=== PATIENT | female | born 1990 | race Caucasian/White ===

== ENCOUNTER 2018-06-24 13:48 | Outpatient (RCR) | payer BC ==
[2018-09-09] MEDS ORDERED: METO-370 PO (07:32)
[2018-09-09] MEDS ORDERED: ZOLP10TA PO (07:32)
[2018-09-09] MEDS ORDERED: BUSP7.5T5 PO (07:32)
== END 2018-09-22 | disposition home or self-care (01) ==
LOC: CARD 13:48
PROVIDERS: ATTEND Internal Medicine Interventional Cardiology
DX: R42 Dizziness and giddiness (principal); R55 Syncope and collapse; R00.2 Palpitations
CPT/HCPCS: 93270

== ENCOUNTER → 2018-06-24 | Outpatient (CLI) | payer BC ==
[~2018-06-24] MED LIST: DEPO PROVERA IM
== END ==
LOC: CARD 13:46
PROVIDERS: ATTEND Internal Medicine Interventional Cardiology
DX: R42 Dizziness and giddiness (principal); R55 Syncope and collapse; R00.2 Palpitations
CPT/HCPCS: 93306

== ENCOUNTER 2018-09-09 07:14 | Day surgery (SDC) | payer BC ==
[2018-09-09] VITALS (13 sets, daily range): BP systolic 112–148; BP diastolic 84–103
[~2018-09-09] VITALS: Ht 157.5 cm; Wt 63.5 kg
[~2018-09-09 07:14] MED LIST changes: +HEParin (CATH LAB) 1,000 ML IV ONE; +LIDOCAINE 1% INJ 20 ML 20 ML VIAL ONE; +NS IV 1000 ML 1,000 ML ONE
[2018-09-09] MEDS ORDERED: ISOPROTERENOL 0.2 MG/D5W 50 ML IV ONE (07:15)
[2018-09-09] MEDS ORDERED: NS IV 1000 ML 1,000 ML IV SCH ×2 (07:15→10:57)
[2018-09-09] MEDS ORDERED: METO-370 PO (07:32)
[2018-09-09] MEDS ORDERED: BUSP7.5T5 PO (07:32)
[2018-09-09] MEDS ORDERED: ZOLP10TA PO (07:32)
[2018-09-09 07:37] LABS: HEMOGLOBIN 14.1 G/DL (11.5-16.0); MEAN PLATELET VOLUME 9.1 FL (7.4-10.4); RED CELL DISTRIBUTION WIDTH 12.4 % (10.0-14.5); WHITE BLOOD COUNT 8.7 10^3/uL (4.3-11.0)
[2018-09-09] MEDS ORDERED: PROPOFOL DRIP (ICU) 100 ML IV ONE ×2 (07:49→10:18)
[2018-09-09 07:53] LABS: INR 0.9 (0.8-1.4); PROTHROMBIN TIME PATIENT 12.9 SEC (12.2-14.7)
[2018-09-09 07:56] LABS: ALANINE AMINOTRANSFERASE 98 U/L (0-55); ALBUMIN 4.6 GM/DL (3.2-4.5); ALKALINE PHOSPHATASE 78 U/L (40-136); BUN/CREATININE RATIO 11; CALCIUM 9.7 MG/DL (8.5-10.1); CARBON DIOXIDE 22 MMOL/L (21-32); CHLORIDE 105 MMOL/L (98-107); CREATININE SERUM 1.02 MG/DL (0.60-1.30); GFR ESTIMATED > 60; GLUCOSE 94 MG/DL (70-105); POTASSIUM 3.5 MMOL/L (3.6-5.0); SODIUM 139 MMOL/L (135-145); TOTAL PROTEIN 7.7 GM/DL (6.4-8.2)
[2018-09-09] MEDS ORDERED: MIDAZOLAM 5 MG/5 ML (VERSED) VIAL ONE (07:58)
[2018-09-09] MEDS ORDERED: LIDOCAINE 1% INJ 20 ML 20 ML VIAL ONE (08:57)
--- NOTE | 2018-09-09 10:49 | Cardiac Procedure Note-CS/ASA ---
Pre-Procedure Note Pre-Op Procedure Note H&P Reviewed The H&P was reviewed, patient examined and no changes noted. Date H&P Reviewed: Sep 09, 2018 Time H&P Reviewed: 08:00 Conscious Sedation Pre-Proced Time 08:00 ASA Score 3 For ASA 3 and 4: Consider anesthesia and medical clearance. Also, for patients with a history of failed moderate sedation consider anesthesia. Airway Lungs Heart ASA score ASA 1: a normal healthy patient ASA 2: a patient with a mild systemic disease (mid diabetes, controlled hypertension, obesity ASA 3: a patient with a severe systemic disease that limits activity (angina, COPD, prior Myocardial infarction) ASA 4: a patient with an incapacitating disease that is a constant threat to life (CHF, renal failure) ASA 5: a moribund patient not expected to survive 24 hrs. (ruptured aneurysm) ASA 6: a declared brain- patient whose organs are being harvested. For emergent operations, add the letter E after the classification Mallampati Classification Grade 1 Sedation Plan Analgesia, Amnesia, Plan communicated to team members, Discussed options with patient/fam, Discussed risks with patient/fam The patient is an appropriate candidate to undergo the planned procedure, sedation, and anesthesia. The patient immediately re-assessed prior to indication. Paris HOWELL MD Sep 09, 2018 10:49
--- NOTE | 2018-09-09 10:57 | Electrophysiology Procedure ---
EP Procedure DATE OF SERVICE:09/09/18 CARDIAC VENEER REDRIER: Atul Kathleen MD, [facility], [facility]. INDICATION: narrow complex tachycardia, inappropriate sinus tachycardia. PREOPERATIVE DIAGNOSIS:narrow complex tachycardia, inappropriate sinus tachycardia. POSTOPERATIVE DIAGNOSES: no PSVT induced. Inappropriate sinus tachycardia. HISTORY: this is a 28-year-old lady with frequent palpitations. She was found to have narrow complex tachycardia which was likely inappropriate sinus tachycardia however it very fast heart rates occasionally PVCs were not discernible therefore PSVT was in the differential. The patient is planned for comprehensive EP study and ablation. PROCEDURE PERFORMED: 1. Comprehensive EP study with induction. 2. Fluoroscopy. 3. left atrial pacing and recording. 4. Drug infusion. COMPLICATION: None. ESTIMATED BLOOD LOSS: 10 mL. CONTRAST USED: None. FLUOROSCOPY TIME: 3.1 minutes. FLUOROSCOPY DOSE: 21 mgy. SPECIMENS: None. ANESTHESIA: Done by our anesthesia colleagues. ANTICOAGULATION: none. PROCEDURE IN DETAIL: After informed consent was taken, the patient was brought to the EP lab. Anesthesia was provided by our anesthesia colleagues. The patient was draped and prepped in the usual sterile fashion. The patient presented to the EP lab in sinus rhythm. Access was gained in the right femoral vein with a 6-Filipino and an 8-Filipino sheath. Left access in left femoral vein was gained with 5-Filipino and 6-Filipino sheath respectively. High right atrial catheter was an Chay catheter, right ventricular catheter was placed, his catheter and the CS catheter were also placed. A comprehensive EP study was done including left atrial pacing and recording. Dual AV mayra physiology was not demonstrated however single AV mayra echoes were demonstrated consistently. Isuprel was given and still were not able to induce tachycardia. Single AV mayra echo's were still demonstrated consistently. Dual AV mayra echoes were not demonstrated. EP study continued during washout phase and we were still not able to induce dual AV mayra echoes or tachycardia. Therefore no ablation was done. RV pacing did not demonstrate any left lateral pathway. Concentric atrial activation. Left atrial pacing and recording did not demonstrate any left-sided pathway. The patienttolerated the procedure well and did not have any complication. The patientleft the lab in sinus rhythm. MEASUREMENTS/EP STUDY: AA interval 525 ms, AH interval 61 ms, TX interval 168 ms, QRS duration 73 ms, QT interval 371 ms, R-R interval 670 ms, AV Wenckebach at pacing 260 ms, Retrograde Wenckebach when pacing at 460 ms, Retrograde Wenckebach when pacing at 210 ms, Atrial ERP was 450/260 ms, Atrial ERP was 400/210 ms, PLAN: The patient will be observed overnight and will be discharged home today with precise followup instructions. Atul Kathleen MD, RS, CCDS Cardiac Electrophysiology Paris KATHLEEN MD Sep 09, 2018 10:57
--- NOTE | 2018-09-09 10:59 | Discharge Inst-Post CATH ---
Discharge Inst-CATH/EP Post Cardiac Cath/EP D/C Inst Follow Up/Plan Dr Kathleen in six weeks. Continue beta blockers. <b>CARDIAC CATH/EP PROCEDURE DISCHARGE INSTRUCTIONS</b> ACTIVITY * Go Home directly and rest. * Limit activity of the leg (or wrist if it was used) for 7 days including aerobics, swimming, jogging, bicycling, etc. * Restrict stair-climbing for 7 days if possible, if not, climb up with your non-cath leg, then bring together on the same step. * Avoid lifting, pushing, pulling or excessive movement of the affected extremity for 7 days. * Customary sexual activity may be resumed after 2 days-use caution not to use a position that strains or causes pain to the affected extremity. * No driving for 24 hours. * NO SMOKING. * Avoid straining for bowel movements for 7 days. * Gentle walking on level ground is allowed. * Returning to work will depend on the type of procedure and the results. Your doctor will discuss this with you. CALL YOUR DOCTOR FOR ANY OF THE FOLLOWING: *If bleeding from the puncture site occurs- Apply gentle pressure to site with clean cloth and call your doctor or EMS. * If a knot or lump forms under the skin, increases in size, or causes pain. * If bruising appears to be worsening or moving further down your leg instead of disappearing. * Temperature above 101 F. CARE OF YOUR GROIN INCISION; * Bruising or purple discoloration of the skin near the puncture site is common. * You may shower only, no bathtub bathing for 5 days. Be careful to avoid slipping as your leg may feel stiff. * If a closure device was used on your femoral artery, please see the attached guide regarding care of the device and your leg. * Leave dressing on FOR 24 hours. CARE OF YOUR WRIST INCISION; * Bruising or purple discoloration of the skin near the puncture site is common. * You may shower. * DO NOT submerge wrist. * Leave dressing on FOR 24 hours. Paris KATHLEEN MD Sep 09, 2018 10:59
[2018-09-09] MEDS ORDERED: PATIENT MAY USE OWN MEDS, ALL PO SCH (11:00)
--- NOTE | 2018-09-09 11:01 | Cardiology Discharge Summary ---
Diagnosis/Chief Complaint Date of Admission 09/08/2018 Date of Discharge 09/09/2018 Admission Diagnosis narrow complex tachycardia Final/Discharge Diagnosis inappropriate sinus tachycardia Chief Complaint/HPI Chief Complaint/HPI this is a 28-year-old lady with palpitations and narrow complex tachycardia likely inappropriate sinus tachycardia however PSVT needs to be ruled out. Discharge Summary Procedures EP study did not demonstrate PSVT. No ablation was done. Discharge Physical Examination unremarkable. Hospital Course Was the Problem List Reviewed?: Yes stable. Pending Labs Laboratory Tests 09/09/18 07:26: White Blood Count 8.7, Red Blood Count 4.69, Hemoglobin 14.1, Hematocrit 41, Mean Corpuscular Volume 88, Mean Corpuscular Hemoglobin 30, Mean Corpuscular Hemoglobin Concent 34, Red Cell Distribution Width 12.4, Platelet Count 342, Mean Platelet Volume 9.1, Prothrombin Time 12.9, INR Comment 0.9, Activated Partial Thromboplast Time 29, Sodium Level 139, Potassium Level 3.5, Chloride Level 105, Carbon Dioxide Level 22, Anion Gap 12, Blood Urea Nitrogen 11, Creatinine 1.02, Estimat Glomerular Filtration Rate > 60, BUN/Creatinine Ratio 11, Glucose Level 94, Calcium Level 9.7, Corrected Calcium , Total Bilirubin 1.0, Aspartate Amino Transf (AST/SGOT) 50, Alanine Aminotransferase (ALT/SGPT) 98, Alkaline Phosphatase 78, Total Protein 7.7, Albumin 4.6 09/09/18 08:30: Serum Test, Qualitative NEGATIVE Discussion & Recommendations Discussion discharge instructions will be discussed at length. Patient will continue beta blockers. Follow up appt.: Dr. Kathleen in 6 weeks. Dicharge Diet: No Restrictions Activity as Tolerated: Yes Home Medications Reviewed patient Home Medication Reconciliation performed by pharmacy medication reconciliations office machine technician and/or nursing. Patients Allergies have been reviewed. Discharge Home Medications: Reviewed and agree with Discharge Medication list on patient's Discharge Instruction sheet Condition at discharge stable. Instructions to patient/family Dr Kathleen in six weeks. Continue beta blockers. Paris KATHLEEN MD Sep 09, 2018 11:01
[2018-09-09] MEDS ORDERED: morphine INJ 10 MG/ML 1ML (SYR OR VIAL) IVP ONE (14:45)
[2018-09-09] MEDS ORDERED: ONDANSETRON 4 MG/2 ML (SDV) Z0FRAN IVP PRN (14:45)
[2018-09-09] MEDS ORDERED: MEPERIDINE (DEMEROL) INJ 50 MG/ML IVP ONE (14:45)
--- OUTSIDE RECORDS SUMMARY | 2018-09-09 17:26 | XMS REPORT ---
Author Author Migration, Doctor Organization [facility] Address Unknown Phone Unavailable Care Team Providers Care Automatic Bow Maker Machine Tender Name Role Phone Migration, Doctor Unavailable Unavailable PROBLEMS Type Condition ICD9-CM Code [id number] Code Onset Dates Condition Status SNOMED Code Problem Snoring R06.83 Active 14625610 Problem Excessive daytime sleepiness G47.19 Active 829160038810 Problem Primary insomnia F51.01 Active 4388149 Problem Irregular menstrual bleeding N92.6 Active 75704425 Problem Chronic fatigue R53.82 Active 78154260 Problem Anxiety F41.9 Active 60843989 Problem Non-seasonal allergic rhinitis, unspecified chronicity, unspecified trigger J30.89 Active 49543493 ALLERGIES No Information ENCOUNTERS Encounter Location Date Diagnosis [facility] [address] [address] Nov, Ringworm of body B35.4 and Viral gastroenteritis A08.4 [place] [address] [address] Jul, [facility] [place] [address] [address] Feb, [place] [address] [address] Feb, Excessive daytime sleepiness G47.19 and Snoring R06.83 [facility] [place] [id number] [place] [address] Feb, [place] [address] [address] Feb, Primary insomnia F51.01 ; Chronic fatigue R53.82 ; Snoring R06.83 ; Non-seasonal allergic rhinitis, unspecified chronicity, unspecified trigger J30.89 and Excessive daytime sleepiness G47.19 [facility] [address] [place] [address] 2017 Acute bacterial conjunctivitis of right eye H10.31 [place] [address] [address] Jan, Anxiety F41.9 [facility] [id number] [place] [id number] Dec, [facility] [address] [id number] Sep, Dental examination Z01.20 [place] [address] [address] Sep, Anxiety F41.9 [facility] [address] [id number] [place] [id number] Sep, Dental examination Z01.20 [place] [address] [address] Aug, Anxiety F41.9 [place] [address] [address] June, Encounter for routine adult health examination with abnormal findings Z00.01 and Irregular menstrual bleeding N92.6 [place] [address] [place] [id number] [place] [address] June, Encounter for routine adult health examination with abnormal findings Z00.01 ; Irregular menstrual bleeding N92.6 ; Snoring R06.83 and Chronic fatigue R53.82 [facility] [place] [address] [id number] [place] [address] June, [facility] [address] [address] Jan, Bilateral impacted cerumen H61.23 and Pharyngitis due to other organism J02.8 [facility] [id number] [place] [address] 17 Nov, 2015 Acute cystitis with hematuria N30.01 [facility] [address] [place] [id number] [place] [id number] 30 May, 2014 Dental examination V72.2 [facility] [place] [facility] [address] [id number] [place] [address] 14 May, 2014 [facility] [place] [facility] [address] [id number] [place] [address] 13 May, 2014 [facility] [place] [facility] [address] [id number] [place] [address] 08 Nov, 2013 [facility] [place] [facility] [address] [id number] [place] [address] Nov, [facility] [place] [facility] [address] [id number] [place] [address] Nov, [facility] [place] [facility] [address] [id number] [place] [address] Nov, [facility] [place] [facility] [address] [id number] [place] [address] Nov, [facility] [place] [facility] [address] [id number] [place] [address] Nov, [facility] [place] [facility] [address] [id number] [place] [address] Nov, [facility] [place] [facility] [address] [id number] [place] [address] Nov, [facility] [place] [facility] [address] [id number] [place] [address] Nov, [facility] [place] [facility] [address] [id number] [place] [address] Nov, [facility] [place] [facility] [address] [id number] [place] [address] Oct, [facility] [place] [facility] [address] [id number] [place] [address] Oct, [facility] [place] [facility] [address] [id number], [place] [address] Jan, [facility] [place] [address] [facility] [id number] [place] [address] Dec, [facility] [place] [address] [facility] [id number], [place] [address] Dec, [facility] [place] [address] [facility] [id number], [place] [address] Nov, [facility] [place] [address] [facility] [id number], [place] [address] Nov, [facility] [place] [address] [facility] [id number], [place] [address] Oct, [facility] [place] [address] [facility] [id number], [place] [address] Sep, IMMUNIZATIONS No Known Immunizations SOCIAL HISTORY Never Assessed REASON FOR VISIT EMR-[facility] PLAN OF CARE VITAL SIGNS MEDICATIONS Medication Instructions Dosage Frequency Start Date End Date Duration Status Azithromycin 250 mg 2 Tablet by Oral route on day 1 then take 1 daily for 4 days Sep, Active Depo-Provera 150 mg/mL inject 150 mg by intramuscular route every 3 months Oct, Active Flagyl 500 mg 1 tablet by Oral route 2 times per day for 7 days Nov, Active PredniSONE 10 mg 1 tablet by Oral route 2 times per day for 5 days as directed Sep, Active Bactrim DS 800-160 mg 1 tablet by Oral route 2 times per day for 7 day(s) Dec, Active RESULTS No Results PROCEDURES No Known procedures INSTRUCTIONS MEDICATIONS ADMINISTERED No Known Medications MEDICAL (GENERAL) HISTORY Type Description Date Medical History Anxiety Surgical History Bilateral Eye Surgery age 4 for severe strabismus Surgical History section x2 Hospitalization History childbirth only
--- OUTSIDE RECORDS SUMMARY | 2018-09-09 17:26 | XMS REPORT ---
Author Author FLORENTINONORBERTO Reid Organization [facility] Address [address] [place] [address] Care Team Providers Care Med Peds Name Role Phone NORBERTO FLORENTINO Unavailable PROBLEMS Type Condition ICD9-CM Code [id number] Code Onset Dates Condition Status SNOMED Code Problem Snoring R06.83 Active 00372696 Problem Primary insomnia F51.01 Active 2820779 Problem Excessive daytime sleepiness G47.19 Active 483194917824 Problem Chronic fatigue R53.82 Active 04577476 Problem Irregular menstrual bleeding N92.6 Active 12844961 Problem Non-seasonal allergic rhinitis, unspecified chronicity, unspecified trigger J30.89 Active 96843021 Problem Anxiety F41.9 Active 10611361 ALLERGIES No Information ENCOUNTERS Encounter Location Date Diagnosis [facility] [id number] [place] [address] Jul, [facility] [address] [address] Feb, [facility] [id number] [place] [address] Feb, Excessive daytime sleepiness G47.19 and Snoring R06.83 [facility] [address] [address] [id number] [place] [address] Feb, [facility] [address] [place] [id number] [place] [address] Feb, Primary insomnia F51.01 ; Chronic fatigue R53.82 ; Snoring R06.83 ; Non-seasonal allergic rhinitis, unspecified chronicity, unspecified trigger J30.89 and Excessive daytime sleepiness G47.19 [facility] [address] [id number] [place] [address] 2017 Acute bacterial conjunctivitis of right eye H10.31 [facility] [address] [place] [id number] [place] [address] Jan, Anxiety F41.9 [facility] [id number] [place] [id number] Dec, [facility] [id number] [place] [id number] Sep, Dental examination Z01.20 [facility] [address] [address] 15 Sep, 2016 Anxiety F41.9 [facility] [address] [id number] Sep, Dental examination Z01.20 [place] [address] [address] Aug, Anxiety F41.9 [place] [address] [address] June, Encounter for routine adult health examination with abnormal findings Z00.01 and Irregular menstrual bleeding N92.6 [place] [address] [address] June, Encounter for routine adult health examination with abnormal findings Z00.01 ; Irregular menstrual bleeding N92.6 ; Snoring R06.83 and Chronic fatigue R53.82 [place] [address] [id number] [place] [address] June, [facility] [address] [id number] [place] [address] Jan, Bilateral impacted cerumen H61.23 and Pharyngitis due to other organism J02.8 [facility] [id number] [place] [address] Nov, Acute cystitis with hematuria N30.01 [facility] [id number] [place] [id number] May, Dental examination V72.2 [facility] [place] [facility] [address] [id number] [place] [address] 14 May, 2014 [facility] [place] [facility] [address] [id number] [place] [address] May, [facility] [place] [facility] [address] [id number] [place] [address] Nov, [facility] [place] [facility] [address] [id number], [place] [address] Nov, [facility] [place] [facility] [address] [id number] [place] [address] Nov, [facility] [place] [facility] [address] [id number], [place] [address] Nov, [facility] [place] [facility] [address] [id number], [place] [address] Nov, [facility] [place] [facility] [address] [id number], [place] [address] Nov, [facility] [place] [facility] [address] [id number], [place] [address] Nov, [facility] [place] [facility] [address] [id number], [place] [address] Nov, [facility] [place] [facility] [address] [id number], [place] [address] Nov, [facility] [place] [facility] [address] [id number], [place] [address] Nov, [facility] [place] [facility] [address] [id number], [place] [address] Oct, [facility] [place] [facility] [address] [id number], [place] [address] Oct, [facility] [place] [facility] [address] [id number], [place] [address] Jan, [facility] [place] [facility] [address] [facility] [id number], [place] [address] Dec, [facility] [address], [place] [address] Dec, [facility] [address] [place] [address] [id number], [place] [address] Nov, [facility] [address]65[address], [place] [address] Nov, [facility] [address] [place] [address] [id number], [place] [address] Oct, [facility] [address] [place] [id number], [place] [address] Sep, IMMUNIZATIONS No Known Immunizations SOCIAL HISTORY Never Assessed REASON FOR VISIT Cancel Appointment Request PLAN OF CARE VITAL SIGNS MEDICATIONS Unknown Medications RESULTS No Results PROCEDURES No Known procedures INSTRUCTIONS MEDICATIONS ADMINISTERED No Known Medications MEDICAL (GENERAL) HISTORY Type Description Date Medical History Anxiety Surgical History Bilateral Eye Surgery age 4 for severe strabismus Surgical History section x2 Hospitalization History childbirth only
--- OUTSIDE RECORDS SUMMARY | 2018-09-09 17:26 | XMS REPORT ---
Author Author Migration, Doctor Organization [facility] Address Unknown Phone Unavailable Care Team Providers Care Musician Instrumental Name Role Phone Migration, Doctor Unavailable Unavailable PROBLEMS Type Condition ICD9-CM Code [id number] Code Onset Dates Condition Status SNOMED Code Problem Snoring R06.83 Active 39549153 Problem Excessive daytime sleepiness G47.19 Active 818747553590 Problem Primary insomnia F51.01 Active 2209120 Problem Irregular menstrual bleeding N92.6 Active 52029728 Problem Chronic fatigue R53.82 Active 20115708 Problem Anxiety F41.9 Active 46707144 Problem Non-seasonal allergic rhinitis, unspecified chronicity, unspecified trigger J30.89 Active 77826721 ALLERGIES No Information ENCOUNTERS Encounter Location Date Diagnosis [facility] [address] [address] Nov, Ringworm of body B35.4 and Viral gastroenteritis A08.4 [place] [address] [address] Jul, [facility] [address] [address] Feb, [place] [address] [address] Feb, Excessive daytime sleepiness G47.19 and Snoring R06.83 [facility] [address] [address] Feb, [place] [address] [address] Feb, Primary insomnia F51.01 ; Chronic fatigue R53.82 ; Snoring R06.83 ; Non-seasonal allergic rhinitis, unspecified chronicity, unspecified trigger J30.89 and Excessive daytime sleepiness G47.19 [facility] [address] [place] [address] 2017 Acute bacterial conjunctivitis of right eye H10.31 [place] [address] [address] Jan, Anxiety F41.9 [facility] [address] [place] [id number] [place] [id number] Dec, [facility] [address] [id number] Sep, Dental examination Z01.20 [place] [address] [address] Sep, Anxiety F41.9 [facility] [address] [place] [id number] [place] [id number] Sep, Dental examination Z01.20 [place] [address] [address] Aug, Anxiety F41.9 [place] [address] [address] June, Encounter for routine adult health examination with abnormal findings Z00.01 and Irregular menstrual bleeding N92.6 [place] [address] [place] [id number] [place] [address] June, Encounter for routine adult health examination with abnormal findings Z00.01 ; Irregular menstrual bleeding N92.6 ; Snoring R06.83 and Chronic fatigue R53.82 [facility] [address] [place] [id number] [place] [address] June, [facility] [address] [address] Jan, Bilateral impacted cerumen H61.23 and Pharyngitis due to other organism J02.8 [facility] [address] [place] [id number] [place] [address] 17 Nov, 2015 Acute cystitis with hematuria N30.01 [facility] [address] [place] [id number] [id number] 30 May, 2014 Dental examination V72.2 [facility] [place] [facility] [address] [id number] [place] [address] 14 May, 2014 [facility] [place] [facility] [address] [id number] [place] [address] 13 May, 2014 [facility] [place] [facility] [address] [id number] [place] [address] 08 Nov, 2013 [facility] [place] [facility] [address] [id number] [place] [address] Nov, [facility] [place] [facility] [address] [id number] [place] [address] Nov, [facility] [place] [facility] [address] [id number] [place] [address] Nov, [facility] [place] [facility] [address] [id number] [place] [address] Nov, [facility] [place] [facility] [address] [id number] [place] [address] Nov, [facility] [place] [facility] [address] [id number] [place] [address] Nov, [facility] [place] [facility] [address] [id number] [place] [address] Nov, [facility] [place] [facility] [address] [id number] [place] [address] Nov, [facility] [place] [facility] [address] [id number] [place] [address] Nov, [facility] [place] [facility] [address] [id number] [place] [address] Oct, [facility] [place] [facility] [address] [id number] [place] [address] Oct, [facility] [place] [facility] [address] [id number], [place] [address] Jan, [facility] [address] [facility] [id number], [place] [address] Dec, [facility] [address], [place] [address] Dec, [facility] [address], [place] [address] Nov, [facility] [address], [place] [address] Nov, [facility] [address] [place] [id number] [address] Oct, [facility] [address] [place] [id number] [address] Sep, IMMUNIZATIONS No Known Immunizations SOCIAL HISTORY Never Assessed REASON FOR VISIT EMR-[facility] PLAN OF CARE VITAL SIGNS MEDICATIONS No Known Medications RESULTS No Results PROCEDURES No Known procedures INSTRUCTIONS MEDICATIONS ADMINISTERED No Known Medications MEDICAL (GENERAL) HISTORY Type Description Date Medical History Anxiety Surgical History Bilateral Eye Surgery age 4 for severe strabismus Surgical History section x2 Hospitalization History childbirth only
--- OUTSIDE RECORDS SUMMARY | 2018-09-09 17:26 | XMS REPORT ---
Author Author SHERIE PINTO [facility] Address [address] [place] [address] Care Team Providers Care Regulatory Affairs Intern Name Role Phone SHERIE PINTO Unavailable PROBLEMS Type Condition ICD9-CM Code [id number] Code Onset Dates Condition Status SNOMED Code Problem Snoring R06.83 Active 94192143 Problem Primary insomnia F51.01 Active 0194448 Problem Excessive daytime sleepiness G47.19 Active 329625625078 Problem Chronic fatigue R53.82 Active 65657541 Problem Irregular menstrual bleeding N92.6 Active 56615039 Problem Non-seasonal allergic rhinitis, unspecified chronicity, unspecified trigger J30.89 Active 67758689 Problem Anxiety F41.9 Active 08272814 ALLERGIES No Known Allergies ENCOUNTERS Encounter Location Date Diagnosis [facility] [address] [address] Nov, Ringworm of body B35.4 and Viral gastroenteritis A08.4 [facility] [address] [place] [id number] [place] [address] Jul, [place] [address] [address] Feb, [place] [address] [address] Feb, Excessive daytime sleepiness G47.19 and Snoring R06.83 [place] [address] [address] Feb, [place] [address] [place] [id number] [place] [address] Feb, Primary insomnia F51.01 ; Chronic fatigue R53.82 ; Snoring R06.83 ; Non-seasonal allergic rhinitis, unspecified chronicity, unspecified trigger J30.89 and Excessive daytime sleepiness G47.19 [facility] [address] [place] [id number] [place] [address] 2017 Acute bacterial conjunctivitis of right eye H10.31 [place] [address] [place] [id number] [place] [address] Jan, Anxiety F41.[address] [facility] [address] [id number] Dec, [facility] [address] [id number] Sep, Dental examination Z01.20 [place] [address] [address] Sep, Anxiety F41.[address] [facility] [address] [id number] Sep, Dental examination Z01.20 [place] [address] [place] [id number] [place] [address] Aug, Anxiety F41.9 [place] [address] [address] June, Encounter for routine adult health examination with abnormal findings Z00.01 and Irregular menstrual bleeding N92.6 [place] [address] [place] [id number] [place] [address] June, Encounter for routine adult health examination with abnormal findings Z00.01 ; Irregular menstrual bleeding N92.6 ; Snoring R06.83 and Chronic fatigue R53.82 [place] [address] [address] June, [facility] [place] [address] [address] Jan, Bilateral impacted cerumen H61.23 and Pharyngitis due to other organism J02.8 [facility] [place] [address] [place] [address] Nov, Acute cystitis with hematuria N30.01 [facility] [address] [id number] [id number] 30 May, 2014 Dental examination V72.2 [facility] [address] [id number], [place] [address] 14 May, 2014 [facility] [id number] [place] [address] May, [facility] [address] [id number] [place] [address] Nov, [facility] [id number] [place] [address], [place] [address] Nov, [facility] [address] [place] [id number], [place] [address] Nov, [facility] [address] [place] [id number] [place] [address] Nov, [facility] [address] [facility] [id number], [place] [address] Nov, [facility] [address], [place] [address] Nov, [facility] [address], [place] [address] Nov, [facility] [address] [id number], [place] [address] Nov, [facility] [place] [facility] [address] [facility] [id number], [place] [address] Nov, [facility] [place] [facility] [address] [facility] [id number], [place] [address] Nov, [facility] [place] [facility] [address] [facility] [id number], [place] [address] Oct, [facility] [place] [facility] [address] [facility] [id number] [place] [address] Oct, [facility] [address] [facility] [id number], [place] [address] Jan, [facility] [address] [place] [id number], [place] [address] Dec, [facility] [address] [place] [id number], [place] [address] Dec, [facility] [address] [place] [id number], [place] [address] Nov, [facility] [address] [place] [id number], [place] [address] Nov, [facility] [address] [place] [id number], [place] [address] Oct, [facility] [address] [place] [id number], [place] [address] Sep, IMMUNIZATIONS No Known Immunizations SOCIAL HISTORY Never Assessed REASON FOR VISIT Rash on L inner thigh-fariha,RMA , PT. states she has a wilson on her inner thigh that started about seven days ago and it's getting bigger, and vomiting and hav ing diarrhea, stomach ache, pt also states that her joints are hurting, LMP 10/21 PLAN OF CARE Activity Details Follow Up prn Reason: VITAL SIGNS Height 62 in 2017-11-23 Weight 139.4 lbs 2017-11-23 Temperature 99.0 degrees Fahrenheit 2017-11-23 Heart Rate 121 bpm 2017-11-23 Respiratory Rate 20 2017-11-23 Oximetry on room air:99 % 2017-11-23 BMI 25.49 kg/m2 2017-11-23 Blood pressure systolic 122 mmHg 2017-11-23 Blood pressure diastolic 84 mmHg 2017-11-23 MEDICATIONS Medication Instructions Dosage Frequency Start Date End Date Duration Status Zolpidem Tartrate 5 mg Orally Once a day 1 tablet at bedtime 24h Feb, 30 days Active Ketoconazole 2 % Externally Once a day 1 application to affected area 24h Nov, 21 days Active Fluticasone Propionate 50 MCG/ACT Nasally Once a day 1 spray in each nostril 24h Feb, 30 day(s) Active BusPIRone HCl 7.5 MG Orally 3 times a day 1 tablet 8h Sep, 30 days Active RESULTS No Results PROCEDURES No Known procedures INSTRUCTIONS MEDICATIONS ADMINISTERED No Known Medications MEDICAL (GENERAL) HISTORY Type Description Date Medical History Anxiety Surgical History Bilateral Eye Surgery age 4 for severe strabismus Surgical History section x2 Hospitalization History childbirth only
--- OUTSIDE RECORDS SUMMARY | 2018-09-09 17:26 | XMS REPORT ---
Author Author FLORENTINONORBERTO Reid Organization [facility] Address [address] [place] [address] Care Team Providers Care Bridge Toll Collector Name Role Phone NORBERTO FLORENTINO Unavailable PROBLEMS Type Condition ICD9-CM Code [id number] Code Onset Dates Condition Status SNOMED Code Problem Snoring R06.83 Active 66559970 Problem Primary insomnia F51.01 Active 8823795 Problem Excessive daytime sleepiness G47.19 Active 037012116681 Problem Chronic fatigue R53.82 Active 60310933 Problem Irregular menstrual bleeding N92.6 Active 68299369 Problem Non-seasonal allergic rhinitis, unspecified chronicity, unspecified trigger J30.89 Active 91089282 Problem Anxiety F41.9 Active 44038758 ALLERGIES No Known Allergies ENCOUNTERS Encounter Location Date Diagnosis [facility] [address] [address] Jul, [facility] [address] [address] Feb, [place] [address] [place] [id number] [place] [address] Feb, Excessive daytime sleepiness G47.[address] [facility] [address] [place] [id number] [place] [address] Feb, [facility] [address] [place] [id number] [place] [address] Feb, Primary insomnia F51.01 ; Chronic fatigue R53.82 ; Snoring R06.83 ; Non-seasonal allergic rhinitis, unspecified chronicity, unspecified trigger J30.89 and Excessive daytime sleepiness G47.19 [facility] [address] [place] [id number] [place] [address] 2017 Acute bacterial conjunctivitis of right eye H10.31 [facility] [address] [place] [id number] [place] [address] Jan, Anxiety F41.9 [facility] [place] [facility] [address] [place] [id number] [place] [id number] Dec, [facility] [place] [facility] [address] [place] [id number] [place] [id number] Sep, Dental examination Z01.20 [place] [address] [address] Sep, Anxiety F41.9 [facility] [place] [facility] [address] [id number] Sep, Dental examination Z01.20 [place] [address] [address] Aug, Anxiety F41.9 [place] [address] [address] June, Encounter for routine adult health examination with abnormal findings Z00.01 and Irregular menstrual bleeding N92.6 [place] [address] [address] June, Encounter for routine adult health examination with abnormal findings Z00.01 ; Irregular menstrual bleeding N92.6 ; Snoring R06.83 and Chronic fatigue R53.82 [place] [address] [place] [id number] [place] [address] June, [facility] [address] [place] [id number] [place] [address] Jan, Bilateral impacted cerumen H61.23 and Pharyngitis due to other organism J02.8 [facility] [address] [place] [id number] [place] [address] Nov, Acute cystitis with hematuria N30.01 [facility] [place] [facility] [address] [place] [id number] [place] [id number] May, Dental examination V72.2 [facility] [place] [facility] [address] [id number] [place] [address] 14 May, 2014 [facility] [place] [facility] [address] [id number], [place] [address] May, [facility] [place] [facility] [address] [id number] [place] [address] Nov, [facility] [place] [facility] [address] [id number], [place] [address] Nov, [facility] [place] [facility] [address] [id number] [place] [address] Nov, [facility] [place] [facility] [address] [id number], [place] [address] Nov, [facility] [place] [facility] [address] [id number], [place] [address] Nov, [facility] [place] [facility] [address] [id number], [place] [address] Nov, [facility] [place] [facility] [address] [id number], [place] [address] Nov, [facility] [place] [facility] [address] [id number], [place] [address] Nov, [facility] [place] [facility] [address] [id number], [place] [address] Nov, [facility] [place] [facility] [address] [id number], [place] [address] Nov, [facility] [place] [facility] [address] [id number], [place] [address] Oct, [facility] [place] [facility] [address] [id number], [place] [address] Oct, [facility] [place] [facility] [address] [id number], [place] [address] Jan, [facility] [place] [facility] [address] [facility] [id number] [place] [address] Dec, [facility] [address] [facility] [id number], [place] [address] Dec, [facility] [address] [facility] [id number], [place] [address] Nov, [facility] [address] [facility] [id number], [place] [address] Nov, [facility] [address] [facility] [id number], [place] [address] Oct, [facility] [address] [facility] [id number], [place] [address] Sep, IMMUNIZATIONS No Known Immunizations SOCIAL HISTORY Never Assessed REASON FOR VISIT Anxiety f/u: continues to not sleep well, but states is feeling a little better overall laron vargas PLAN OF CARE Activity Details Follow Up 3 Months Reason:CHM VITAL SIGNS Height 62 in 2017-02-20 Weight 137.5 lbs 2017-02-20 Temperature 97.8 degrees Fahrenheit 2017-02-20 Heart Rate 80 bpm 2017-02-20 Respiratory Rate 20 2017-02-20 BMI 25.15 kg/m2 2017-02-20 Blood pressure systolic 120 mmHg 2017-02-20 Blood pressure diastolic 74 mmHg 2017-02-20 MEDICATIONS Medication Instructions Dosage Frequency Start Date End Date Duration Status Zolpidem Tartrate 5 mg Orally Once a day 1 tablet at bedtime 24h Feb, 30 days Active HydrOXYzine HCl 25 MG Orally at bedtime as needed 1 tablet as needed Aug, 90 days Active BusPIRone HCl 7.5 MG Orally 3 times a day 1 tablet 8h 15 Sep, 2016 30 days Active Fluticasone Propionate 50 MCG/ACT Nasally Once a day 1 spray in each nostril 24h Feb, 30 day(s) Active Cetirizine HCl 10 mg Orally Once a day 1 tablet 24h Feb, May, 90 days Active RESULTS No Results PROCEDURES No Known procedures INSTRUCTIONS MEDICATIONS ADMINISTERED No Known Medications MEDICAL (GENERAL) HISTORY Type Description Date Medical History Anxiety Surgical History Bilateral Eye Surgery age 4 for severe strabismus Surgical History section x2 Hospitalization History childbirth only
--- OUTSIDE RECORDS SUMMARY | 2018-09-09 17:26 | XMS REPORT ---
Author Author FLORENTINONORBERTO Reid Organization [facility] Address [address] [place] [address] Care Team Providers Care Part Maker Name Role Phone FLORENTINOYANNICK ReidELE Unavailable PROBLEMS Type Condition ICD9-CM Code [id number] Code Onset Dates Condition Status SNOMED Code Problem Anxiety F41.9 Active 20609390 Problem Chronic fatigue R53.82 Active 59793479 Problem Irregular menstrual bleeding N92.6 Active 23090940 Problem Snoring R06.83 Active 86263302 ALLERGIES No Information SOCIAL HISTORY Never Assessed PLAN OF CARE VITAL SIGNS MEDICATIONS No Known Medications RESULTS Name Result Date Reference Range THYROID ANALYZER 2016-07-10 TSH 1.150 0.450-4.500 A1C 2016-07-10 Hemoglobin A1c 5.3 4.8-5.6 CBC 2016-07-10 WBC 6.8 3.4-10.8 RBC 4.56 3.77-5.28 Hemoglobin 14.0 11.1-15.9 Hematocrit 41.2 34.0-46.6 MCV 90 79-97 MCH 30.7 26.6-33.0 MCHC 34.0 31.5-35.7 RDW 13.4 12.3-15.4 Platelets 342 150-379 Neutrophils 60 Lymphs 31 Monocytes 7 Eos 1 Basos 1 Neutrophils (Absolute) 4.2 1.4-7.0 Lymphs (Absolute) 2.1 0.7-3.1 Monocytes(Absolute) 0.5 0.1-0.9 Eos (Absolute) 0.1 0.0-0.4 Baso (Absolute) 0.0 0.0-0.2 Immature Granulocytes 0 Immature Grans (Abs) 0.0 0.0-0.1 LIPID PANEL 2016-07-10 Cholesterol, Total 202 100-199 Triglycerides 72 0-149 HDL Cholesterol 52 >39 VLDL Cholesterol Francisco 14 5-40 LDL Cholesterol Calc 136 0-99 CMP 2016-07-10 Glucose, Serum 81 65-99 BUN 11 6-20 Creatinine, Serum 0.77 0.57-1.00 eGFR If NonAfricn Am 107 >59 eGFR If Africn Am 123 >59 BUN/Creatinine Ratio 14 9-23 Sodium, Serum 139 134-144 Potassium, Serum 4.3 3.5-5.2 Chloride, Serum 101 96-106 Carbon Dioxide, Total 23 18-29 Calcium, Serum 9.6 8.7-10.2 Protein, Total, Serum 7.6 6.0-8.5 Albumin, Serum 5.0 3.5-5.5 Globulin, Total 2.6 1.5-4.5 A/G Ratio 1.9 1.2-2.2 Bilirubin, Total 0.4 0.0-1.2 Alkaline Phosphatase, S 70 39-117 AST (SGOT) 42 0-40 ALT (SGPT) 70 0-32 PROCEDURES Procedure Date Ordered Result Body Site LAB NOT BILLED BY [facility] July 10, 2016 GLYCATED HEMOGLOBIN TEST July 10, 2016 VENIPUNCT, ROUTINE* July 10, 2016 IMMUNIZATIONS No Known Immunizations MEDICAL (GENERAL) HISTORY Type Description Date Surgical History Bilateral Eye Surgery age 4 for severe strabismus Surgical History section x2 Hospitalization History childbirth only
--- OUTSIDE RECORDS SUMMARY | 2018-09-09 17:26 | XMS REPORT ---
Author Author JULIANE ESTRELLA [facility] Address [address] [place] [address] Care Team Providers Care Heart Nurse Name Role Phone SAMEER JULIANE Unavailable PROBLEMS Type Condition ICD9-CM Code NXA39-PA Code Onset Dates Condition Status SNOMED Code Problem Snoring R06.83 Active 85897280 Problem Primary insomnia F51.01 Active 6640446 Problem Excessive daytime sleepiness G47.19 Active 188383169006 Problem Chronic fatigue R53.82 Active 12592442 Problem Irregular menstrual bleeding N92.6 Active 59355245 Problem Non-seasonal allergic rhinitis, unspecified chronicity, unspecified trigger J30.89 Active 14528097 Problem Anxiety F41.9 Active 68120777 ALLERGIES No Known Allergies ENCOUNTERS Encounter Location Date Diagnosis [place] [id number] [place] [address] Jul, [place] [address] [address] Feb, [place] [id number] [place] [address] Feb, Excessive daytime sleepiness G47.19 and Snoring R06.83 [facility] [id number] [place] [address] Feb, [place] [id number] [place] [address] Feb, Primary insomnia F51.01 ; Chronic fatigue R53.82 ; Snoring R06.83 ; Non-seasonal allergic rhinitis, unspecified chronicity, unspecified trigger J30.89 and Excessive daytime sleepiness G47.19 [facility] [id number] [place] [address] Jan, Acute bacterial conjunctivitis of right eye H10.31 [facility] [id number] [place] [address] Jan, Anxiety F41.9 [facility] [id number] [place] [id number] Dec, [facility] [id number] [place] [id number] Sep, Dental examination Z01.20 [place] [address] [address] Sep, Anxiety F41.9 [facility] [address] [id number] Sep, Dental examination Z01.20 [place] [address] [address] Aug, Anxiety F41.9 [place] [address] [address] June, Encounter for routine adult health examination with abnormal findings Z00.01 and Irregular menstrual bleeding N92.6 [place] [address] [address] June, Encounter for routine adult health examination with abnormal findings Z00.01 ; Irregular menstrual bleeding N92.6 ; Snoring R06.83 and Chronic fatigue R53.82 [place] [id number] [place] [address] June, [facility] [id number] [place] [address] Jan, Bilateral impacted cerumen H61.23 and Pharyngitis due to other organism J02.8 [facility] [id number] [place] [address] Nov, Acute cystitis with hematuria N30.01 [facility] [id number] [place] [id number] May, Dental examination V72.2 [facility] [place] [facility] [address] [id number] [place] [address] 14 May, 2014 [facility] [place] [facility] [address] [id number], [place] [address] May, [facility] [place] [facility] [address] [facility] [id number], [place] [address] Nov, [facility] [place] [facility] [address] [id number], [place] [address] Nov, [facility] [place] [facility] [address] [id number] [place] [address] Nov, [facility] [place] [facility] [address] [id number], [place] [address] Nov, [facility] [place] [facility] [address] [facility] [id number], [place] [address] Nov, [facility] [place] [facility] [address] [id number], [place] [address] Nov, [facility] [place] [facility] [address] [id number], [place] [address] Nov, [facility] [place] [facility] [address] [facility] [id number], [place] [address] Nov, [facility] [place] [facility] [address] [id number], [place] [address] Nov, [facility] [place] [facility] [address] [id number], [place] [address] Nov, [facility] [place] [facility] [address] [id number], [place] [address] Oct, [facility] [place] [facility] [address] [facility] [id number], [place] [address] Oct, [facility] [place] [facility] [address] [facility] [id number], [place] [address] Jan, [facility] [place] [facility] [address] [facility] [id number] [place] [address] Dec, [facility] [address] [facility] [id number], [place] [address] Dec, [facility] [address] [facility] [id number], [place] [address] Nov, [facility] [address] [facility] [id number], [place] [address] Nov, [facility] [address] [facility] [id number], [place] [address] Oct, [facility] [address] [facility] [id number], [place] [address] Sep, IMMUNIZATIONS No Known Immunizations SOCIAL HISTORY Never Assessed REASON FOR VISIT Right eye redness and pain- blujrred vision started this morning JStrasserRN PLAN OF CARE Activity Details Follow Up prn Reason: VITAL SIGNS Height 62 in 2017-01-25 Weight 131.0 lbs 2017-01-25 Temperature 99.2 degrees Fahrenheit 2017-01-25 Heart Rate 76 bpm 2017-01-25 Respiratory Rate 20 2017-01-25 BMI 23.96 kg/m2 2017-01-25 Blood pressure systolic 126 mmHg 2017-01-25 Blood pressure diastolic 82 mmHg 2017-01-25 MEDICATIONS Medication Instructions Dosage Frequency Start Date End Date Duration Status HydrOXYzine HCl 25 MG Orally at bedtime as needed 1 tablet as needed Aug, 90 days Active Wygwtjgy-Kactpkvgj-Qmgqjivo 3.5-05568-9.1 Ophthalmic Four times a day 1 drop into affected eye 6h Jan, 7 days Active BusPIRone HCl 7.5 MG Orally [...]
--- OUTSIDE RECORDS SUMMARY | 2018-09-09 17:27 | XMS REPORT ---
Author Author NORBERTO FLORENTINO Organization [facility] Address [address] [place] [address] Care Team Providers Care Clinical Data Programmer Name Role Phone NORBERTO FLORENTINO Unavailable PROBLEMS Type Condition ICD9-CM Code GSS42-GN Code Onset Dates Condition Status SNOMED Code Problem Anxiety F41.9 Active 26323870 Problem Chronic fatigue R53.82 Active 63574271 Problem Irregular menstrual bleeding N92.6 Active 71775589 Problem Snoring R06.83 Active 88305705 ALLERGIES No Known Allergies SOCIAL HISTORY Never Assessed PLAN OF CARE Activity Details Follow Up 4 Weeks Reason:lab follow up VITAL SIGNS Height 62 in 2016-07-07 Weight 119 lbs 2016-07-07 Temperature 97.6 degrees Fahrenheit 2016-07-07 Heart Rate 80 bpm 2016-07-07 Respiratory Rate 20 2016-07-07 BMI 21.76 kg/m2 2016-07-07 Blood pressure systolic 124 mmHg 2016-07-07 Blood pressure diastolic 70 mmHg 2016-07-07 MEDICATIONS No Known Medications RESULTS No Results PROCEDURES No Known procedures IMMUNIZATIONS No Known Immunizations MEDICAL (GENERAL) HISTORY Type Description Date Surgical History Bilateral Eye Surgery age 4 for severe strabismus Surgical History section x2 Hospitalization History childbirth only
--- OUTSIDE RECORDS SUMMARY | 2018-09-09 17:27 | XMS REPORT ---
Author Author FLORENTINONORBERTO Reid Organization [facility] Address [address] [place] [address] Care Team Providers Care Catalog Library Assistant Name Role Phone NORBERTO FLORENTINO Unavailable PROBLEMS Type Condition ICD9-CM Code IJR69-PK Code Onset Dates Condition Status SNOMED Code Problem Snoring R06.83 Active 36599250 Problem Primary insomnia F51.01 Active 7256180 Problem Excessive daytime sleepiness G47.19 Active 933736388481 Problem Chronic fatigue R53.82 Active 05443881 Problem Irregular menstrual bleeding N92.6 Active 91712028 Problem Non-seasonal allergic rhinitis, unspecified chronicity, unspecified trigger J30.89 Active 21914074 Problem Anxiety F41.9 Active 11449096 ALLERGIES No Known Allergies ENCOUNTERS Encounter Location Date Diagnosis [facility] [address] [address] June, [facility] [address] [address] Feb, [facility] [id number] [place] [address] Feb, Excessive daytime sleepiness G47.19 and Snoring R06.83 [facility] [id number] [place] [address] Feb, [facility] [id number] [place] [address] Feb, Primary insomnia F51.01 ; Chronic fatigue R53.82 ; Snoring R06.83 ; Non-seasonal allergic rhinitis, unspecified chronicity, unspecified trigger J30.89 and Excessive daytime sleepiness G47.19 [facility] [id number] [place] [address] Jan, Acute bacterial conjunctivitis of right eye H10.31 [facility] [id number] [place] [address] Jan, Anxiety F41.9 [facility] [id number] [place] [id number] Dec, [facility] [id number] [place] [id number] Sep, Dental examination Z01.20 [place] [address] [address] Sep, Anxiety F41.9 [facility] [address] [id number] Sep, Dental examination Z01.20 [place] [address] [address] Aug, Anxiety F41.9 [place] [address] [address] June, Encounter for routine adult health examination with abnormal findings Z00.01 and Irregular menstrual bleeding N92.6 [place] [address] [address] June, Encounter for routine adult health examination with abnormal findings Z00.01 ; Irregular menstrual bleeding N92.6 ; Snoring R06.83 and Chronic fatigue R53.82 [place] [id number] [place] [address] June, [facility] [id number] [place] [address] Jan, Bilateral impacted cerumen H61.23 and Pharyngitis due to other organism J02.8 [facility] [id number] [place] [address] Nov, Acute cystitis with hematuria N30.01 [facility] [id number] [place] [id number] May, Dental examination V72.2 [facility] [place] [facility] [address] [id number] [place] [address] 14 May, 2014 [facility] [place] [facility] [address] [id number], [place] [address] May, [facility] [place] [facility] [address] [id number] [place] [address] Nov, [facility] [place] [facility] [address] [id number], [place] [address] Nov, [facility] [place] [facility] [address] [id number] [place] [address] Nov, [facility] [place] [facility] [address] [id number], [place] [address] Nov, [facility] [place] [facility] [address] [id number], [place] [address] Nov, [facility] [place] [facility] [address] [id number], [place] [address] Nov, [facility] [place] [facility] [address] [id number], [place] [address] Nov, [facility] [place] [facility] [address] [id number], [place] [address] Nov, [facility] [place] [facility] [address] [id number], [place] [address] Nov, [facility] [place] [facility] [address] [id number], [place] [address] Nov, [facility] [place] [facility] [address] [id number], [place] [address] Oct, [facility] [place] [facility] [address] [id number], [place] [address] Oct, [facility] [place] [facility] [address] [id number], [place] [address] Jan, [facility] [place] [facility] [address] [facility] [id number] [place] [address] Dec, [facility] [address] [facility] [id number], [place] [address] Dec, [facility] [address] [facility] [id number], [place] [address] Nov, [facility] [address] [facility] [id number], [place] [address] Nov, [facility] [address] [facility] [id number], [place] [address] Oct, [facility] [address] [facility] [id number], [place] [address] Sep, IMMUNIZATIONS No Known Immunizations SOCIAL HISTORY Never Assessed REASON FOR VISIT Anxiety f/u -- marcia amanda PLAN OF CARE Activity Details Follow Up 3 Months Reason:CHM/ anxiety VITAL SIGNS Height 62 in 2016-10-03 Weight 132.0 lbs 2016-10-03 Temperature 98.0 degrees Fahrenheit 2016-10-03 Heart Rate 72 bpm 2016-10-03 Respiratory Rate 18 2016-10-03 BMI 24.14 kg/m2 2016-10-03 Blood pressure systolic 110 mmHg 2016-10-03 Blood pressure diastolic 70 mmHg 2016-10-03 MEDICATIONS Medication Instructions Dosage Frequency Start Date [...]
--- OUTSIDE RECORDS SUMMARY | 2018-09-09 17:27 | XMS REPORT ---
Author Author NORBERTO FLORENTINO Organization [employer] Address Unknown Phone Unavailable Care Team Providers Care Barrel Cleaner Name Role Phone NORBERTO FLORENTINO CP Unavailable Allergies, Adverse Reactions, Alerts Substance Reaction Event Type N.K.D.A. Info Not Available Non Drug Allergy Problems Problem Type Condition Code Onset Dates Condition Status Problem Screening examination for venereal disease V74.5 Active Problem Unspecified breast screening V76.10 Active Problem Routine gynecological examination V72.31 Active Assessment Acute cystitis with hematuria N30.01 Active Problem Screening for malignant neoplasm of the cervix V76.2 Active Problem Impacted cerumen 380.4 Active Problem Unspecified otalgia 388.70 Active Problem Unspecified contraceptive management V25.9 Active Problem Urinary tract infection, site not specified 599.0 Active Problem Other disorder of menstruation and other abnormal bleeding from female genital tract 626.8 Active Problem Unspecified tinnitus 388.30 Active Problem Spasm of muscle 728.85 Active Medications Medication Code System Code Instructions Start Date End Date Status Dosage Pyridium [facility] [address]-27 200 mg Orally Three times a day Dec 06, 2015 Dec 08, 2015 1 tablet after meals Ciprofloxacin HCl [facility] [address]-66 500 MG Orally Twice a day Dec 06, 2015 Dec 11, 2015 1 tablet Procedures Procedure Coding System Code Date URINALYSIS, AUTO, W/O SCOPE CPT-4 16299 Dec 06[facility] 2015 [facility] NOBLL Dec 06, 2015 Office Visit, Est Pt., Level 3 CPT-4 34561 Dec 06, 2015 Vital Signs Date/Time: Dec 06, 2015 Cardiac Monitoring Heart Rate 116 bpm Weight 118.0 lbs Height 62 in BMI 21.58 Index Blood Pressure Diastolic 88 mmHg Blood Pressure Systolic 116 mmHg Results Name Result Date Reference Range Unit Abnormality Flag UA LONG DIP (IN HOUSE) ----ISRRAEL trace 20151206 ----NIT negative 20151206 ----Exp date 20151206 ----Lot # [id number] 20151206 ----SG >=1.030 20151206 ----KET negative 20151206 ----MARIE negative 20151206 ----GLU negative 20151206 ----Odor strong 20151206 ----pH 5.5 20151206 ----BLO 2+ 20151206 ----URO 0.2 20151206 ----Protein 2+ 20151206 ----Lot # [id number] 20151206 ----Exp date 20151206 ----Clarity cloudy 20151206 ----Color dark yellow 20151206 Summary Purpose [employer] Submission
--- OUTSIDE RECORDS SUMMARY | 2018-09-09 17:27 | XMS REPORT ---
Author Author GERI HAYES [facility] Address [address] [place] [address] Care Team Providers Care Computer Network Support Specialist Name Role Phone GERI HAYES Unavailable PROBLEMS Type Condition ICD9-CM Code DIE00-GO Code Onset Dates Condition Status SNOMED Code Problem Anxiety F41.9 Active 16711613 Problem Irregular menstrual bleeding N92.6 Active 85692431 Problem Chronic fatigue R53.82 Active 76229347 Problem Snoring R06.83 Active 33030550 ALLERGIES Substance Reaction Event Type Date Status N.K.D.A. Unknown Non Drug Allergy Jan, Unknown SOCIAL HISTORY No smoking Hx information available PLAN OF CARE VITAL SIGNS Height 62 in 2016-02-09 Weight 121.8 lbs 2016-02-09 Temperature 97.8 degrees Fahrenheit 2016-02-09 Heart Rate 88 bpm 2016-02-09 Respiratory Rate 18 2016-02-09 BMI 22.28 kg/m2 2016-02-09 Blood pressure systolic 112 mmHg 2016-02-09 Blood pressure diastolic 70 mmHg 2016-02-09 MEDICATIONS Medication Instructions Dosage Frequency Start Date End Date Duration Status Amoxicillin 500 MG Orally 3 times a day 1 capsule 8h Jan, Jan, 10 day(s) Active Debrox 6.5 % Otic Twice a day 5 drops into affected ear 12h Jan, Jan, 05 days Active RESULTS No Results PROCEDURES Procedure Date Ordered Related Diagnosis Body Site Office Visit, Est Pt., Level 3 Feb 09, 2016 IMMUNIZATIONS No Known Immunizations
--- OUTSIDE RECORDS SUMMARY | 2018-09-09 17:27 | XMS REPORT ---
Author Author FLORENTINONORBERTO Reid Organization [facility] Address [address] [place] [address] Care Team Providers Care Monitor Car Operator Name Role Phone NORBERTO FLORENTINO Unavailable PROBLEMS Type Condition ICD9-CM Code EQY81-NE Code Onset Dates Condition Status SNOMED Code Problem Snoring R06.83 Active 68554169 Problem Primary insomnia F51.01 Active 5372957 Problem Excessive daytime sleepiness G47.19 Active 724513571715 Problem Chronic fatigue R53.82 Active 71853391 Problem Irregular menstrual bleeding N92.6 Active 84112545 Problem Non-seasonal allergic rhinitis, unspecified chronicity, unspecified trigger J30.89 Active 32091056 Problem Anxiety F41.9 Active 87929728 ALLERGIES No Known Allergies ENCOUNTERS Encounter Location Date Diagnosis [facility] [address] [address] June, [facility] [address] [address] Feb, [facility] [id number] [place] [address] Feb, Excessive daytime sleepiness G47.19 and Snoring R06.83 [facility] [id number] [place] [address] Feb, [facility] [id number] [place] [address] Feb, Primary insomnia F51.01 ; Chronic fatigue R53.82 ; Snoring R06.83 ; Non-seasonal allergic rhinitis, unspecified chronicity, unspecified trigger J30.89 and Excessive daytime sleepiness G47.19 [facility] [id number] [place] [address] Jan, Acute bacterial conjunctivitis of right eye H10.31 [facility] [id number] [place] [address] Jan, Anxiety F41.9 [facility] [id number] [place] [phone] Dec, [facility] [id number] [place] [phone] Sep, Dental examination Z01.20 [place] [address] [address] Sep, Anxiety F41.9 [facility] [address] [id number] Sep, Dental examination Z01.20 [place] [address] [address] Aug, Anxiety F41.9 [place] [address] [address] June, Encounter for routine adult health examination with abnormal findings Z00.01 and Irregular menstrual bleeding N92.6 [place] [address] [address] June, Encounter for routine adult health examination with abnormal findings Z00.01 ; Irregular menstrual bleeding N92.6 ; Snoring R06.83 and Chronic fatigue R53.82 [place] [id number] [place] [address] June, [facility] [id number] [place] [address] Jan, Bilateral impacted cerumen H61.23 and Pharyngitis due to other organism J02.8 [facility] [id number] [place] [address] Nov, Acute cystitis with hematuria N30.01 [facility] [id number] [place] [id number] May, Dental examination V72.2 [facility] [place] [facility] [address] [id number] [place] [address] 14 May, 2014 [facility] [place] [facility] [address] [id number], [place] [address] May, [facility] [place] [facility] [address] [id number] [place] [address] Nov, [facility] [place] [facility] [address] [id number], [place] [address] Nov, [facility] [place] [facility] [address] [id number] [place] [address] Nov, [facility] [place] [facility] [address] [id number], [place] [address] Nov, [facility] [place] [facility] [address] [id number], [place] [address] Nov, [facility] [place] [facility] [address] [id number], [place] [address] Nov, [facility] [place] [facility] [address] [id number], [place] [address] Nov, [facility] [place] [facility] [address] [id number], [place] [address] Nov, [facility] [place] [facility] [address] [id number], [place] [address] Nov, [facility] [place] [facility] [address] [id number], [place] [address] Nov, [facility] [place] [facility] [address] [id number], [place] [address] Oct, [facility] [place] [facility] [address] [id number], [place] [address] Oct, [facility] [place] [facility] [address] [id number], [place] [address] Jan, [facility] [place] [facility] [address] [facility] [id number] [place] [address] Dec, [facility] [address] [facility] [id number], [place] [address] Dec, [facility] [address] [facility] [id number], [place] [address] Nov, [facility] [address] [facility] [id number], [place] [address] Nov, [facility] [address] [facility] [id number], [place] [address] Oct, [facility] [address] [facility] [id number], [place] [address] Sep, IMMUNIZATIONS No Known Immunizations SOCIAL HISTORY Never Assessed REASON FOR VISIT lab f/u--DBennettRN PLAN OF CARE Activity Details Follow Up 4 Weeks Reason:anxiety VITAL SIGNS Height 62 in 2016-08-31 Weight 118 lbs 2016-08-31 Temperature 97.5 degrees Fahrenheit 2016-08-31 Heart Rate 80 bpm 2016-08-31 Respiratory Rate 20 2016-08-31 BMI 21.58 kg/m2 2016-08-31 Blood pressure systolic 100 mmHg 2016-08-31 Blood pressure diastolic 70 mmHg 2016-08-31 MEDICATIONS Medication Instructions Dosage Frequency Start Date End Date Duration Status HydrOXYzine HCl 25 MG Orally every 8 hrs 1 tablet as needed 8h Aug, 30 day(s) Active RESULTS No Results PROCEDURES No Known procedures INSTRUCTIONS MEDICATIONS ADMINISTERED No Known Medications MEDICAL (GENERAL) HISTORY Type Description Date Medical History Anxiety Surgical History Bilateral Eye Surgery age 4 for severe strabismus Surgical History section x2 Hospitalization History childbirth only
--- OUTSIDE RECORDS SUMMARY | 2018-09-09 17:27 | XMS REPORT ---
Author Author RAZAMIKAYLA MORALES Logan [facility] Address Unknown Care Team Providers Care Emergency Room Physician Name Role Phone MIKAYLA CARNEY Unavailable PROBLEMS Type Condition ICD9-CM Code [id number] Code Onset Dates Condition Status SNOMED Code Problem Snoring R06.83 Active 71512333 Problem Primary insomnia F51.01 Active 5111736 Problem Excessive daytime sleepiness G47.19 Active 461732195102 Problem Chronic fatigue R53.82 Active 30586984 Problem Irregular menstrual bleeding N92.6 Active 68086718 Problem Non-seasonal allergic rhinitis, unspecified chronicity, unspecified trigger J30.89 Active 77203574 Problem Anxiety F41.9 Active 21728335 ALLERGIES No Known Allergies ENCOUNTERS Encounter Location Date Diagnosis [facility] [id number] [place] [address] June, [facility] [id number] [place] [address] Feb, [place] [id number] [place] [address] Feb, Excessive daytime sleepiness G47.19 and Snoring R06.83 [place] [id number] [place] [address] Feb, [facility] [id number] [place] [address] Feb, Primary insomnia F51.01 ; Chronic fatigue R53.82 ; Snoring R06.83 ; Non-seasonal allergic rhinitis, unspecified chronicity, unspecified trigger J30.89 and Excessive daytime sleepiness G47.19 [facility] [address] [place] [address] 2017 Acute bacterial conjunctivitis of right eye H10.31 [place] [id number] [place] [address] Jan, Anxiety F41.9 [facility] [address] [id number] Dec, [facility] [id number] [place] [phone] Sep, Dental examination Z01.20 [place] [address] [address] Sep, Anxiety F41.9 [facility] [address] [id number] Sep, Dental examination Z01.20 [place] [address] [address] Aug, Anxiety F41.9 [place] [address] [address] June, Encounter for routine adult health examination with abnormal findings Z00.01 and Irregular menstrual bleeding N92.6 [place] [address] [address] June, Encounter for routine adult health examination with abnormal findings Z00.01 ; Irregular menstrual bleeding N92.6 ; Snoring R06.83 and Chronic fatigue R53.82 [place] [id number] [place] [address] June, [facility] [address] [address] Jan, Bilateral impacted cerumen H61.23 and Pharyngitis due to other organism J02.8 [facility][note 3] [id number] [place] [address] Nov, Acute cystitis with hematuria N30.01 [facility] [id number] [place] [address] [id number] May, Dental examination V72.2 [facility] [place] [facility] [address] [id number] [place] [address] 14 May, 2014 [facility] [place] [facility] [address] [id number] [place] [address] 13 May, 2014 [facility] [place] [facility] [address] [id number] [place] [address] 08 Nov, 2013 [facility] [place] [facility] [address] [id number] [place] [address] Nov, [facility] [place] [facility] [address] [id number] [place] [address] Nov, [facility] [place] [facility] [address] [id number] [place] [address] Nov, [facility] [place] [facility] [address] [id number] [place] [address] Nov, [facility] [place] [facility] [address] [id number] [place] [address] Nov, [facility] [place] [facility] [address] [id number] [place] [address] Nov, [facility] [place] [facility] [address] [id number] [place] [address] Nov, [facility] [place] [facility] [address] [id number] [place] [address] Nov, [facility] [place] [facility] [address] [id number] [place] [address] Nov, [facility] [place] [facility] [address] [id number] [place] [address] Oct, [facility] [place] [facility] [address] [id number] [place] [address] Oct, [facility] [place] [facility] [address] [id number] [place] [address] Jan, [facility] [place] [facility] [address] [id number] [place] [address] Dec, [facility] [address] [facility] [id number], [place] [address] Dec, [facility] [address] [facility] [id number], [place] [address] Nov, [facility] [address] [facility] [id number], [place] [address] Nov, [facility] [address] [facility] [id number], [place] [address] Oct, [facility] [address] [facility] [id number], [place] [address] Sep, IMMUNIZATIONS No Known Immunizations SOCIAL HISTORY Never Assessed REASON FOR VISIT RC #8 PLAN OF CARE Activity Details Follow Up prn Reason:AIDAN with HYG VITAL SIGNS Blood pressure systolic 128 mmHg 2016-10-11 Blood pressure diastolic 87 mmHg 2016-10-11 MEDICATIONS Medication Instructions Dosage Frequency Start Date End Date Duration Status BusPIRone HCl 7.5 MG Orally 3 times a day 1 tablet 8h 15 Sep, 2016 30 days Active HydrOXYzine HCl 25 MG Orally at bedtime as needed 1 tablet as needed Aug, 90 days Active RESULTS No Results PROCEDURES Procedure Date Ordered Result Body Site RSN COMPOS-4/> SURF/W/INCISAL ANG Oct 11, 2016 ANTERIOR Oct 11, 2016 Billing Notes on claim Oct 11, 2016 INSTRUCTIONS MEDICATIONS ADMINISTERED No Known Medications MEDICAL (GENERAL) HISTORY Type Description Date Medical History Anxiety Surgical History Bilateral Eye Surgery age 4 for severe strabismus Surgical History section x2 Hospitalization History childbirth only
--- OUTSIDE RECORDS SUMMARY | 2018-09-09 17:27 | XMS REPORT ---
Author Author FLORENTINONORBERTO Reid Organization [facility] Address [address] [place] [address] Care Team Providers Care Fur Pointer Name Role Phone NORBERTO FLORENTINO Unavailable PROBLEMS Type Condition ICD9-CM Code UCE62-DQ Code Onset Dates Condition Status SNOMED Code Problem Snoring R06.83 Active 45849125 Problem Primary insomnia F51.01 Active 2065608 Problem Excessive daytime sleepiness G47.19 Active 337867887072 Problem Chronic fatigue R53.82 Active 87153308 Problem Irregular menstrual bleeding N92.6 Active 06643609 Problem Non-seasonal allergic rhinitis, unspecified chronicity, unspecified trigger J30.89 Active 27050891 Problem Anxiety F41.9 Active 86207179 ALLERGIES No Information ENCOUNTERS Encounter Location Date Diagnosis [facility] [id number] [place] [address] Jul, [facility] [address] [address] Feb, [facility] [id number] [place] [address] Feb, Excessive daytime sleepiness G47.19 and Snoring R06.83 [facility] [id number] [place] [address] Feb, [facility] [id number] [place] [address] Feb, Primary insomnia F51.01 ; Chronic fatigue R53.82 ; Snoring R06.83 ; Non-seasonal allergic rhinitis, unspecified chronicity, unspecified trigger J30.89 and Excessive daytime sleepiness G47.19 [facility] [id number] [place] [address] 2017 Acute bacterial conjunctivitis of right eye H10.31 [facility] [id number] [place] [address] Jan, Anxiety F41.9 [facility] [id number] [place] [phone] Dec, [facility] [id number] [place] [phone] Sep, Dental examination Z01.20 [facility] [address] [address] 15 Sep, 2016 Anxiety F41.9 [facility] [address] [id number] Sep, Dental examination Z01.20 [place] [address] [address] Aug, Anxiety F41.9 [place] [address] [address] June, Encounter for routine adult health examination with abnormal findings Z00.01 and Irregular menstrual bleeding N92.6 [place] [address] [address] June, Encounter for routine adult health examination with abnormal findings Z00.01 ; Irregular menstrual bleeding N92.6 ; Snoring R06.83 and Chronic fatigue R53.82 [place] [id number] [place] [address] June, [facility] [id number] [place] [address] Jan, Bilateral impacted cerumen H61.23 and Pharyngitis due to other organism J02.8 [facility] [id number] [place] [address] Nov, Acute cystitis with hematuria N30.01 [facility] [id number] [place] [address] [id number] May, Dental examination V72.2 [facility] [place] [facility] [address] [id number] [place] [address] 14 May, 2014 [facility] [place] [facility] [address] [id number] [place] [address] May, [facility] [place] [facility] [address] [id number] [place] [address] Nov, [facility] [place] [facility] [address] [id number], [place] [address] Nov, [facility] [place] [facility] [address] [id number] [place] [address] Nov, [facility] [place] [facility] [address] [id number], [place] [address] Nov, [facility] [place] [facility] [address] [id number], [place] [address] Nov, [facility] [place] [facility] [address] [id number], [place] [address] Nov, [facility] [place] [facility] [address] [id number], [place] [address] Nov, [facility] [place] [facility] [address] [id number], [place] [address] Nov, [facility] [place] [facility] [address] [id number], [place] [address] Nov, [facility] [place] [facility] [address] [id number], [place] [address] Nov, [facility] [place] [facility] [address] [id number], [place] [address] Oct, [facility] [place] [facility] [address] [id number], [place] [address] Oct, [facility] [place] [facility] [address] [id number], [place] [address] Jan, [facility] [place] [facility] [address] [facility] [id number], [place] [address] Dec, [facility] [address], [place] [address] Dec, [facility] [address] [id number], [place] [address] Nov, [facility] [address] [id number], [place] [address] Nov, [facility] [address] [id number], [place] [address] Oct, [facility] [address] [id number], [place] [address] Sep, IMMUNIZATIONS No Known Immunizations SOCIAL HISTORY Never Assessed REASON FOR VISIT VANDANA note PLAN OF CARE VITAL SIGNS MEDICATIONS Unknown Medications RESULTS No Results PROCEDURES No Known procedures INSTRUCTIONS MEDICATIONS ADMINISTERED No Known Medications MEDICAL (GENERAL) HISTORY Type Description Date Medical History Anxiety Surgical History Bilateral Eye Surgery age 4 for severe strabismus Surgical History section x2 Hospitalization History childbirth only
--- OUTSIDE RECORDS SUMMARY | 2018-09-09 17:27 | XMS REPORT ---
Author Author FLORENTINONORBERTO Reid Organization [facility] Address [address] [place] [address] Care Team Providers Care Tag Maker Name Role Phone NORBERTO FLORENTINO Unavailable PROBLEMS Type Condition ICD9-CM Code LLH56-YL Code Onset Dates Condition Status SNOMED Code Problem Snoring R06.83 Active 94693198 Problem Primary insomnia F51.01 Active 6705077 Problem Excessive daytime sleepiness G47.19 Active 258955117557 Problem Chronic fatigue R53.82 Active 00130351 Problem Irregular menstrual bleeding N92.6 Active 48562790 Problem Non-seasonal allergic rhinitis, unspecified chronicity, unspecified trigger J30.89 Active 07609689 Problem Anxiety F41.9 Active 42262161 ALLERGIES No Information ENCOUNTERS Encounter Location Date Diagnosis [facility] [id number] [place] [address] Jul, [facility] [address] [address] Feb, [facility] [id number] [place] [address] Feb, Excessive daytime sleepiness G47.19 and Snoring R06.83 [facility] [id number] [place] [address] Feb, [facility] [id number] [place] [address] Feb, Primary insomnia F51.01 ; Chronic fatigue R53.82 ; Snoring R06.83 ; Non-seasonal allergic rhinitis, unspecified chronicity, unspecified trigger J30.89 and Excessive daytime sleepiness G47.19 [facility] [id number] [place] [address] 2017 Acute bacterial conjunctivitis of right eye H10.31 [facility] [id number] [place] [address] Jan, Anxiety F41.9 [facility] [id number] [place] [id number] Dec, [facility] [id number] [place] [id number] Sep, Dental examination Z01.20 [facility] [address] [address] 15 Sep, 2016 Anxiety F41.9 [facility] [address] [id number] Sep, Dental examination Z01.20 [place] [address] [address] Aug, Anxiety F41.9 [place] [address] [address] June, Encounter for routine adult health examination with abnormal findings Z00.01 and Irregular menstrual bleeding N92.6 [place] [address] [address] June, Encounter for routine adult health examination with abnormal findings Z00.01 ; Irregular menstrual bleeding N92.6 ; Snoring R06.83 and Chronic fatigue R53.82 [place] [id number] [place] [address] June, [facility] [id number] [place] [address] Jan, Bilateral impacted cerumen H61.23 and Pharyngitis due to other organism J02.8 [facility] [id number] [place] [address] Nov, Acute cystitis with hematuria N30.01 [facility] [id number] [place] [id number] May, Dental examination V72.2 [facility] [place] [facility] [address] [id number] [place] [address] 14 May, 2014 [facility] [place] [facility] [address] [id number] [place] [address] May, [facility] [place] [facility] [address] [id number] [place] [address] Nov, [facility] [place] [facility] [address] [id number] [place] [address] Nov, [facility] [place] [facility] [address] [id number] [place] [address] Nov, [facility] [place] [facility] [address] [id number] [place] [address] Nov, [facility] [place] [facility] [address] [id number] [place] [address] Nov, [facility] [place] [facility] [address] [id number] [place] [address] Nov, [facility] [place] [facility] [address] [id number] [place] [address] Nov, [facility] [place] [facility] [address] [id number] [place] [address] Nov, [facility] [place] [facility] [address] [id number] [place] [address] Nov, [facility] [place] [facility] [address] [id number] [place] [address] Nov, [facility] [place] [facility] [address] [id number] [place] [address] Oct, [facility] [place] [facility] [address] [id number] [place] [address] Oct, [facility] [place] [facility] [address] [id number] [place] [address] Jan, [facility] [place] [facility] [address] [facility] [id number] [place] [address] Dec, [facility] [address] [id number] [address] Dec, [facility] [address] [id number] [address] Nov, [facility] [address] [id number] [address] Nov, [facility] [address] [id number] [address] Oct, [facility] [address] [facility] [id number] [place] [address] Sep, IMMUNIZATIONS No Known Immunizations SOCIAL HISTORY Never Assessed REASON FOR VISIT Refill request PLAN OF CARE VITAL SIGNS MEDICATIONS Medication [...]
== END 2018-09-09 15:10 | disposition home or self-care (01) ==
LOC: CATH 07:14
PROVIDERS: ATTEND Internal Medicine Interventional Cardiology
DX: R00.0 Tachycardia, unspecified (principal); R00.2 Palpitations; Z79.899 Other long term (current) drug therapy
CPT/HCPCS: 36415; 80053; 84703; 85027; 85610; 85730; 87081; 93005; 93620; 93621; 93623

== ENCOUNTER 2021-01-07 13:12 | Emergency (ER) | payer SELFPAY ==
[~2021-01-07] VITALS: Ht 157.5 cm; Wt 70.0 kg
[~2021-01-07 13:12] MED LIST changes: +BUSP7.5T5 PO; -HEParin (CATH LAB) 1,000 ML IV ONE; -LIDOCAINE 1% INJ 20 ML 20 ML VIAL ONE; +METO50TA7 PO; -NS IV 1000 ML 1,000 ML ONE; +ZOLP10TA PO
[2021-01-07] MEDS ORDERED: FAMOTIDINE 20 MG (PEPCID) TABLET PO STA (13:33)
--- NOTE | 2021-01-07 13:41 | ED GI ---
General Chief Complaint: Abdominal/GI Problems Stated Complaint: COUGH,SINUS INFECTION,ABD PAIN,LBAS Nursing Triage Note: PT AMB TO [facility] 9 W REPORTS OF BLAS, COUGH, RUNNY NOSE, ABD PAIN, BODY ACHES, AND FATIGUE SX SUNDAY. PT WAS TESTED FOR FLU, COVID, AND STREP ON SUNDAY AND ALL CAME BACK NEGATIVE. PT GIVEN STEROID AND VOMITED YESTERDAY W REPORTS THAT THE EMESIS APPEARED TO LOOK LIKE "COFFEE GROUNDS." PT A&OX4. Source of Information: Patient Exam Limitations: No Limitations History of Present Illness Date Seen by Provider: Jan 07, 2021 Time Seen by Provider: 13:20 Initial Comments Patient to the ER by private conveyance with her significant other chief complaint for the past 5 days has had a cough nonproductive malaise body aches. She had a negative Covid and influenza swab as well as [facility] She had an episode of emesis yesterday with what she described as coffee-ground in it. She is having some dull achy all over her abdomen discomfort. She called the clinic and they encouraged her to come out to the ER. She has no history of peptic ulcer disease, EGD or hepatitis or alcoholism. She had a couple more episodes of emesis between now and then although it is now more brown and not black. She is not having any chest pain weakness or shortness of air. No fevers. She called her clinic again trying to get in with them and they recommend she come out to the ER. She has had 2 C- sections and her has a vasectomy. She had an ablation by Dr. Kathleen for SVT that was unsuccessful. Allergies and Home Medications Allergies Coded Allergies: No Known Drug Allergies (Unverified , 02/16/14) Patient Home Medication List Home Medication List Reviewed: Yes Buspirone HCl (Buspirone HCl) 7.5 Mg Tablet, 7.5 MG PO PRN, (Reported) Entered as Reported by: FLOWER SHORT on 09/09/18731 Metoprolol Succinate (Metoprolol Succinate) 50 Mg Tab.er.24h, 50 MG PO DAILY, (Reported) Entered as Reported by: FLOWER SHORT on 09/09/18731 Zolpidem Tartrate (Ambien) 10 Mg Tablet, 10 MG PO PRN, (Reported) Entered as Reported by: FLOWER SHORT on 09/09/18 0732 [Depo Provera] , IM, (Reported) Entered as Reported by: MARTINEZ TORRE on 02/16/14 1416 Review of Systems Review of Systems Constitutional: chills; No diaphoresis, No fever; malaise EENTM: No Blurred Vision, No Double Vision Respiratory: Denies Cough, Denies Orthopnea Cardiovascular: Denies Chest Pain, Denies Lightheadedness Gastrointestinal: Abdominal Pain (2 out of 10 all 4 quadrant); Denies Constipated (Bowel movement yesterday normal, formed); Nausea, Vomiting Genitourinary: Denies Burning, Denies Discharge, Denies Drainage Musculoskeletal: No back pain, No joint pain All Other Systems Reviewed Negative Unless Noted: Yes Past Vlrjnkn-Shyrta-Tulvbt Hx Patient Social History Tobacco Use?: No Use of E-Cig and/or Vaping dev: No Substance use?: No Alcohol Use?: No Immunizations Up To Date Influenza Vaccine Up-to-Date: No; Not Current First/Initial COVID19 Vaccinat: NONE Second COVID19 Vaccination Edward: NONE Third COVID19 Vaccination Date: NONE 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 0.0oz. [id number]; 28.00 BMI Method:Stated General Appearance: WD/WN, no apparent distress HEENT: PERRL/EOMI, pharynx normal Neck: non-tender, full range of motion, supple, normal inspection Respiratory: lungs clear, normal breath sounds, no respiratory distress, no accessory muscle use Cardiovascular: normal peripheral pulses, regular rate, rhythm Peripheral Pulses: 2+ Radial Pulses (R), 2+ Radial Pulses (L) Gastrointestinal: normal bowel sounds, soft, no organomegaly, tenderness (Minimally tender all 4 quadrants without mesenteric signs, Rovsing sign, or Marshall's point tenderness or rebound tenderness.) Neurologic/Psychiatric: alert, normal mood/affect, oriented x 3 Skin: normal color, warm/dry Progress/Results/Core Measures Results/Orders Lab Results Laboratory Tests Test 01/07/21 13:27 01/07/21 13:35 Range/Units White Blood Count 10.1 4.3-11.0 10^3/uL Red Blood Count 4.72 3.80-5.11 10^6/uL Hemoglobin 14.6 11.5-16.0 g/dL Hematocrit 42 35-52 % Mean Corpuscular Volume 89 80-99 fL Mean Corpuscular Hemoglobin 31 25-34 pg Mean Corpuscular Hemoglobin Concent 35 32-36 g/dL Red Cell Distribution Width 11.9 10.0-14.5 % Platelet Count 378 130-400 10^3/uL Mean Platelet Volume 9.0 9.0-12.2 fL Immature Granulocyte % (Auto) 1 % Neutrophils (%) (Auto) 58 42-75 % Lymphocytes (%) (Auto) 32 12-44 % Monocytes (%) (Auto) 6 0-12 % Eosinophils (%) (Auto) 2 0-10 % Basophils (%) (Auto) 1 0-10 % Neutrophils # (Auto) 5.8 1.8-7.8 10^3/uL Lymphocytes # (Auto) 3.3 1.0-4.0 10^3/uL Monocytes # (Auto) 0.7 0.0-1.0 10^3/uL Eosinophils # (Auto) 0.2 0.0-0.3 10^3/uL Basophils # (Auto) 0.1 0.0-0.1 10^3/uL Immature Granulocyte # (Auto) 0.1 0.0-0.1 10^3/uL Sodium Level 138 135-145 MMOL/L Potassium Level 3.7 3.6-5.0 MMOL/L Chloride Level 103 98-107 MMOL/L Carbon Dioxide Level 21 21-32 MMOL/L Anion Gap 14 5-14 MMOL/L Blood Urea Nitrogen 11 7-18 MG/DL Creatinine 1.07 0.60-1.30 MG/DL Estimat Glomerular Filtration Rate 60 BUN/Creatinine Ratio 10 Glucose Level 111 H 70-105 MG/DL Calcium Level 9.1 8.5-10.1 MG/DL Corrected Calcium 8.7 8.5-10.1 MG/DL Total Bilirubin 0.5 0.1-1.0 MG/DL Aspartate Amino Transf (AST/SGOT) 28 5-34 U/L Alanine Aminotransferase (ALT/SGPT) 67 H 0-55 U/L Alkaline Phosphatase 73 40-136 U/L C-Reactive Protein High Sensitivity 0.08 0.00-0.50 MG/DL Total Protein 7.6 6.4-8.2 GM/DL Albumin 4.5 3.2-4.5 GM/DL Lipase 36 8-78 U/L Urine Color YELLOW Urine Clarity CLOUDY Urine pH 5.5 5-9 Urine Specific Bartley >=1.030 1.016-1.022 Urine Protein NEGATIVE NEGATIVE Urine Glucose (UA) NEGATIVE NEGATIVE Urine Ketones NEGATIVE NEGATIVE Urine Nitrite NEGATIVE NEGATIVE Urine Bilirubin NEGATIVE NEGATIVE Urine Urobilinogen 0.2 < = 1.0 MG/DL Urine Leukocyte Esterase 2+ H NEGATIVE Urine RBC (Auto) TRACE-I H NEGATIVE Urine RBC 5-10 H /HPF Urine WBC 10-25 H /HPF Urine Crystals PRESENT H /LPF Urine Amorphous Sediment MOD ROSAMARIA URATES H /LPF Urine Bacteria LARGE H /HPF Urine Casts NONE /LPF Urine Mucus NEGATIVE /LPF Urine Culture Indicated YES My Orders Orders - SANJEEV COREY Ed Iv/Invasive Line Start (01/07/21 13:33) Lactated Ringers (Lr 1000 Ml Iv Solution (01/07/21 13:45) Ondansetron Injection (Zofran Injectio (01/07/21 13:45) Lidocaine 2% Viscous 15 Ml (Xylocaine Vi (01/07/21 13:45) Famotidine Tablet (Pepcid Tablet) (01/07/21 13:33) Antacid Suspension (Mylanta Suspension (01/07/21 13:45) Cbc With Automated Diff (01/07/21 13:33) Comprehensive Metabolic Panel (01/07/21 13:33) Hs C Reactive Protein (01/07/21 13:33) Lipase (01/07/21 13:33) Ua Culture If Indicated (01/07/21 13:33) Urine Bedside (01/07/21 13:33) Urine Culture (01/07/21 13:35) Ketorolac Injection (Toradol Injection) (01/07/21 15:00) Promethazine Injection (Phenergan Injec (01/07/21 15:00) Diphenhydramine Injection (Benadryl Inje (01/07/21 15:00) Ceftriaxone 1 Gm Pre-Mix (Rocephin 1 Gm (01/07/21 15:00) Medications Given in ED Current Medications Medications Dose Ordered Sig/Feroz Route Start Time Stop Time Status Last Admin Dose Admin Al Hydrox/Mg Hydrox/Simethicone 30 ml ONCE ONCE PO 01/07/21 13:45 01/07/21 13:46 DC 01/07/21 13:45 30 ML Ceftriaxone Sodium/Dextrose 50 ml @ 100 mls/hr ONCE ONCE IV 01/07/21 15:00 01/07/21 15:29 DC 01/07/21 15:01 100 MLS/HR Diphenhydramine HCl 25 mg ONCE ONCE IVP 01/07/21 15:00 01/07/21 15:01 DC 01/07/21 15:01 25 MG Ketorolac Tromethamine 30 mg ONCE ONCE IVP 01/07/21 15:00 01/07/21 15:01 DC 01/07/21 15:01 30 MG Lactated Ringer's 1,000 ml @ 0 mls/hr Q0M ONCE IV 01/07/21 13:45 01/07/21 13:46 DC 01/07/21 13:45 0 MLS/HR Lidocaine HCl 15 ml ONCE ONCE PO 01/07/21 13:45 01/07/21 13:46 DC 01/07/21 13:44 15 ML Ondansetron HCl 8 mg ONCE ONCE IVP 01/07/21 13:45 01/07/21 13:46 DC 01/07/21 13:45 8 MG Promethazine HCl 25 mg ONCE ONCE IVP 01/07/21 15:00 01/07/21 15:01 DC 01/07/21 15:01 25 MG Vital Signs/I&O 01/07/21 13:16 Temp 36.6 Pulse 98 Resp 20 B/P (MAP) 145/100 (115) Pulse Ox 100 O2 Delivery Room Air Blood Pressure Mean: 115 Progress Progress Note #1: Time: 13:44 Progress Note Heart rate in the 90s, well-appearing female with what appears to be a viral syndrome turned viral gastroenteritis. We will give her some Zofran and trial some GI cocktail. She was encouraged to come to the ER to get a CT scan by her primary care provider over the phone. As of now she has a very benign appearance with a nonsurgical abdominal exam. Explained to her that we would encourage her to get a CT scan if she had adventitious blood work or her symptoms were not significantly improved by simple medications. We discussed testing her stool for traces of blood and follow-up with a general surgery and for endoscopy for her concern of coffee-ground emesis. Patient is okay with this plan. Progress Note #2: Time: 14:50 Progress Note The patient received no benefit from the GI cocktail. She still having some nausea about the same as before despite 8 mg of Zofran. Her fluids are 90% done. We are going to give her some Phenergan, Benadryl, Toradol. She still has aseptic vital signs and a nonacute abdomen. I suspect that her urinary tract infection could explain this. If she is not seeing some improvement then will offer her a CT. We did discuss doing a CT and at this time she still is okay with just treating and going home. Will reassess after she had these medications. Progress Note #3: Time: 15:41 Progress Note Phenergan has made her nausea a little better as well as made her drowsy. Her pain is improved. We did offer her one more time to do a CT scan versus go home, take antibiotics and follow conservative course of treatment. Follow-up next week with primary care. Patient is okay with this latter plan. Departure Impression Primary Impression: Viral upper respiratory tract infection with cough Additional Impressions: Gastroenteritis Urinary tract infection Qualified Codes: N30.00 - Acute cystitis without hematuria Disposition: HOME, SELF-CARE Condition: Stable Departure-Patient Inst. Decision time for Depature: 15:42 Referrals: ALLISON RAMOS MD (PCP/Family) Primary Care Physician Patient Instructions: Urinary Tract Infection, Adult (DC), Viral Upper Respiratory Infection, Adult (DC) Add. Discharge Instructions: Humidifiers and vapor rubs are helpful for congestion and a cough. Tessalon Perles 1 tablet every 6 hours as necessary for cough. Teaspoon of honey or salt water gargles for sore throat. For the urinary tract infection will treat with cefdinir 300 mg twice a day with food. Take for 10 days. I recommend probiotics to help prevent the unfortunate side effect of diarrhea that often occurs when taking antibiotics. 1 capsule [id number] twice a day. Drink lots of fluids. If you have nausea then take Zofran followed by Phenergan with Benadryl for persistent nausea. Zofran/ondansetron 1-2 tablets under the tongue and allow to dissolve and absorb through your mouth every 6 hours as necessary for nausea or vomiting. Phenergan 1 tablet every 6 hours as necessary for breakthrough nausea and vomiting. Take with a tablet of Benadryl to help with the side effects of Phenergan. Tylenol 1000 mg every 8 hours as necessary for pain. Ibuprofen 800 mg every 8 hours as necessary for pain. Maalox or Rolaids or Tums as necessary for indigestion. Promptly return to the nearest ER if you are experiencing severe pain, intractable vomiting or other worsening symptoms such as severe fever especially above 102.9. Otherwise plan to follow-up with your primary care provider next week. All discharge instructions reviewed with patient and/or family. Voiced understanding. Scripts Benzonatate (TESSALON PERLES) 100 Mg Capsule 100 MG PO Q6H PRN for COUGH, #20 CAP 0 Refills Prov: SANJEEV COREY 01/07/21 Cefdinir (Cefdinir) 300 Mg Capsule 300 MG PO BID for 10 Days, #20 CAP 0 Refills Prov: SANJEEV COREY 01/07/21 Promethazine HCl (Promethazine Tablet) 25 Mg Tablet 25 MG PO Q6H PRN for NAUSEA/VOMITING, #10 TAB 0 Refills Prov: SANJEEV COREY 01/07/21 Ondansetron (Ondansetron Odt) 4 Mg Tab.rapdis 4-8 MG PO Q6H PRN for NAUSEA/VOMITING, #15 TAB 0 Refills Prov: SANJEEV COREY 01/07/21 Work/School Note: Work Release Form Date Seen in the Emergency Department: Jan 07, 2021 Return to Work: Jan 08, 2021 Restrictions: No Restrictions SANJEEV COREY Jan 07, 2021 13:41
[2021-01-07 13:44] LABS: BILIRUBIN,URINE NEGATIVE (NEGATIVE); CLARITY,URINE CLOUDY; COLOR,URINE YELLOW; GLUCOSE, URINE (UA) NEGATIVE (NEGATIVE); KETONES,URINE NEGATIVE (NEGATIVE); LEUKOCYTE ESTERASE ,URINE 2+ (NEGATIVE); NITRITE,URINE NEGATIVE (NEGATIVE); PH,URINE 5.5 (5-9); PROTEIN,URINE NEGATIVE (NEGATIVE)
[2021-01-07 13:45] LABS: BASOPHILS # (AUTO) 0.1 10^3/uL (0.0-0.1); BASOPHILS % (AUTO) 1 % (0-10); EOSINOPHILS # (AUTO) 0.2 10^3/uL (0.0-0.3); EOSINOPHILS % (AUTO) 2 % (0-10); HEMATOCRIT 42 % (35-52); HEMOGLOBIN 14.6 g/dL (11.5-16.0); LYMPHOCYTES # (AUTO) 3.3 10^3/uL (1.0-4.0); LYMPHOCYTES % (AUTO) 32 % (12-44); MEAN CORPUSCULAR HEMOGLOBIN 31 pg (25-34); MEAN CORPUSCULAR HGB CONC 35 g/dL (32-36); MEAN CORPUSCULAR VOLUME 89 fL (80-99); MONOCYTES # (AUTO) 0.7 10^3/uL (0.0-1.0); MONOCYTES % (AUTO) 6 % (0-12); NEUTROPHILS # (AUTO) 5.8 10^3/uL (1.8-7.8); NEUTROPHILS % (AUTO) 58 % (42-75); PLATELET COUNT 378 10^3/uL (130-400); WHITE BLOOD COUNT 10.1 10^3/uL (4.3-11.0)
[2021-01-07] MEDS ORDERED: ONDANSETRON 4 MG/2 ML (SDV) Z0FRAN IVP ONE (13:45)
[2021-01-07] MEDS ORDERED: ANTACID SUSP 30 ML UDC (MYLANTA) PO ONE (13:45)
[2021-01-07] MEDS ORDERED: LIDOCAINE 2% VISCOUS 15 ML UDC PO ONE (13:45)
[2021-01-07] MEDS ORDERED: LACTATED RINGERS 1,000 ML IV ONE (13:45)
[2021-01-07 13:49] LABS: ALBUMIN 4.5 GM/DL (3.2-4.5)
[2021-01-07 13:50] LABS: POTASSIUM 3.7 MMOL/L (3.6-5.0)
[2021-01-07 13:51] LABS: CALCIUM 9.1 MG/DL (8.5-10.1)
[2021-01-07 13:52] LABS: TOTAL PROTEIN 7.6 GM/DL (6.4-8.2)
[2021-01-07 13:52] LABS: BACTERIA,URINE LARGE /HPF
[2021-01-07 13:53] LABS: AMORPHOUS SEDIMENT,UR MOD AMOR URATES /LPF
[2021-01-07 13:54] LABS: BILIRUBIN,TOTAL 0.5 MG/DL (0.1-1.0)
[2021-01-07 13:56] LABS: CREATININE SERUM 1.07 MG/DL (0.60-1.30)
[2021-01-07] MEDS ORDERED: KETOROLAC 30 MG/ML VIAL IVP ONE (15:00)
[2021-01-07] MEDS ORDERED: cefTRIAXone 1 GM PRE-MIX 50 ML IV ONE (15:00)
[2021-01-07] MEDS ORDERED: PROMETHAZINE INJ 25 MG/ML (PHENERGAN) AMP IVP ONE (15:00)
[2021-01-07] MEDS ORDERED: diphenhydrAMINE 50 MG/ML INJ (BENADRYL) IVP ONE (15:00)
[2021-01-07] MEDS ORDERED: BENZ100C18 PO (15:46)
[2021-01-07] MEDS ORDERED: CEFD300C3 PO (15:46)
[2021-01-07] MEDS ORDERED: PROM25TA14 PO (15:46)
[2021-01-07] MEDS ORDERED: ONDA4TAB11 PO (15:46)
[2021-01-07 15:56] VITALS: BP 141/110
== END 2021-01-07 15:56 | disposition home or self-care (01) ==
LOC: EDUNIT# 13:12 → ER 13:13
DX: J06.9 Acute upper respiratory infection, unspecified (principal); K52.9 Noninfective gastroenteritis and colitis, unspecified; N39.0 Urinary tract infection, site not specified
CPT/HCPCS: 36415; 80053; 81000; 83690; 84703; 85025; 86141; 87088

== ENCOUNTER → 2021-04-20 | Outpatient (CLI) | payer OTHER ==
[~2021-04-20] MED LIST changes: +BENZ100C18 PO; +CEFD300C3 PO; +ONDA4TAB11 PO; +PROM25TA14 PO
== END ==
LOC: CARD 14:30
PROVIDERS: ATTEND Internal Medicine Cardiovascular Disease
DX: I51.7 Cardiomegaly (principal); I47.1 Supraventricular tachycardia
CPT/HCPCS: 93225; 93226; 93306